=== PATIENT | male | born 1950 | race Asian ===

== ENCOUNTER 2016-11-21 06:20 | Inpatient (IN) | payer OTHER, MEDICAID ==
[~2016-11-21] VITALS: Ht 162.6 cm; Wt 63.5 kg
[2016-11-21 06:20] VITALS: BP 122/84; PULSE 62; RESP 20; TEMP 97.9; O2SAT 97
--- NOTE | 2016-11-21 06:20 | NUR ---
Patient to ER bed 6 to gown for evaluation. Side rails up.
--- NOTE | 2016-11-21 06:30 | NUR ---
Pt in bed 6 , s/p near syncopal episode upon standing prior to breakfast , accu check on arrival was 74. Dr Calvo aware.
--- NOTE | 2016-11-21 06:35 | NUR ---
ANGELIQUE Quinones at bedside examining patient.
--- NOTE | 2016-11-21 07:05 | NUR ---
Assumed care. Pt has no acute distress noted. Pt adjusted for pt comfort.
[2016-11-21 07:12] LABS: HEMATOCRIT 37.6 % (36-54); HEMOGLOBIN 12.7 g/dL (14.0-18.0); MEAN CORPUSCULAR HEMOGLOBIN 32 pg (27-31); MEAN CORPUSCULAR HGB CONC 34 % (32-36); MEAN CORPUSCULAR VOLUME 96 fL (79.0-98.0); PLATELET COUNT (AUTO) 166 K/uL (130-430); RED BLOOD CELL COUNT(AUTO) 3.92 MIL/uL (4.2-6.2); RED CELL DISTRIBUTION WIDTH 13.1 % (9.0-15.0)
[2016-11-21 07:17] LABS: WHITE BLOOD COUNT (AUTO) 3.1 K/uL (4.8-10.8)
[2016-11-21 07:19] LABS: ANION GAP 5 (5-15); CALCIUM 8.9 mg/dL (8.4-11.0); CHLORIDE 105 mmol/L (98-107); CREATININE 1.11 mg/dL (0.55-1.30); GLUCOSE 97 mg/dL (70-99); POTASSIUM 4.3 mmol/L (3.5-5.1); SODIUM SERUM 141 mmol/L (136-145); UREA NITROGEN, BLOOD 11 mg/dL (8-21)
--- NOTE | 2016-11-21 07:30 | NUR ---
Caregiver at bedside to help feed pt.
[2016-11-21 07:32] LABS: GFR AFRICAN AMERICAN 86 mL/min (>90)
[2016-11-21 07:33] LABS: ALANINE AMINOTRANSFERASE 14 U/L (12-78); ALBUMIN 3.3 g/dL (3.4-4.8); ASPARTATE AMINOTRANSFERASE 22 U/L (10-37); THYROID STIMULATING HORMONE 3.59 uIu/mL (0.36-3.74); TOTAL BILIRUBIN 0.7 mg/dL (0.0-1.0)
--- NOTE | 2016-11-21 08:00 | NUR ---
Pt tolerated meal well approximately 90% consumed.
[2016-11-21 08:01] LABS: ATYPICAL LYMPHOCYTES % 0 % (0-0); BAND % (MANUAL) 2 % (0-6); LYMPHOCYTES % (MANUAL) 33 % (20-46)
[2016-11-21 08:02] LABS: BASOPHILS % (MANUAL) 1 % (0-2); EOSINOPHILS % (MANUAL) 0 % (0-7); MONOCYTES % (MANUAL) 8 % (0-11)
[2016-11-21] MEDS ORDERED: LIP10 PO (08:05)
[2016-11-21] MEDS ORDERED: ASCO500T20 PO (08:05)
[2016-11-21] MEDS ORDERED: VITA400C19 PO (08:05)
[2016-11-21] MEDS ORDERED: LORA10TA7 PO (08:05)
[2016-11-21] MEDS ORDERED: OLAN5TAB26 PO (08:05)
[2016-11-21] MEDS ORDERED: LEVO75TA7 PO (08:05)
[2016-11-21] MEDS ORDERED: MULT PO (08:05)
--- NOTE | 2016-11-21 08:10 | NUR ---
# 20 gauge angiocath placed to RAC. Use of asceptic technique. Opsite placed over site. Blood return noted. Flushed with 10 cc of normal saline. No evidence of infiltration noted. Patient tolerated well.
--- NOTE | 2016-11-21 08:15 | NUR ---
Correction:Medication reconciliation completed with information provided by Caregiver. Any prior medication reconciliation on file was reviewed and corrected.
--- NOTE | 2016-11-21 08:15 | NUR ---
Medication reconciliation completed with information provided by . Any prior medication reconciliation on file was reviewed and corrected.
--- NOTE | 2016-11-21 08:30 | NUR ---
Patient will be admitted to care of . Admitted to Telemetry unit. Will go to room 105A. Belongings list completed. Summary report printed. Report will be given at bedside.
--- NOTE | 2016-11-21 08:31 | NUR ---
ADMIT NOTE Received pt from ER to the floor with a diagnosis of Syncope. Admission process initiated. patient oriented to pain management, safety and call light-teach back done.
--- NOTE | 2016-11-21 08:45 | NUR ---
ROUNDS PATIENT BEING SEEN BY DR. BAHENA, DR. FAUST IS ALSO HERE TO SEE PATIENT, PATIENT IN STABLE CONDITION, WILL CONTINUE TO MONITOR, FALL PRECAUTIONS IN PLACE.
--- NOTE | 2016-11-21 09:43 | NUR ---
RN ROUNDS PATIENT CURRENTLY GETTING 2D ECHO, WILL CONTINUE TO MONITOR, FALL PRECAUTIONS IN PLACE.
[2016-11-21] MEDS: LORATADINE 10 MG TABLET PO SCH (10:42)
[2016-11-21] MEDS: LEVOTHYROXINE SODIUM 0.075 MG TABLET PO SCH (10:42)
[2016-11-21] MEDS: ASCORBIC ACID 500 MG TABLET PO SCH (10:42)
[2016-11-21] MEDS: ATORVASTATIN 10 MG TABLET PO SCH (10:42)
--- NOTE | 2016-11-21 10:45 | NUR ---
MEDICATIONS PATIENT RECEIVED MORNING MEDICATIONS, PATIENT TOLERATED WELL, NO OTHER NEEDS AT THIS TIME, WILL CONTINUE TO MONITOR, FALL PRECAUTIONS IN PLACE.
--- NOTE | 2016-11-21 11:45 | NUR ---
RN ROUNDS PATIENT IS CURRENTLY SITTING UP IN BED COLORING, NO SIGNS OF DISTRESS NOTED, WILL CONTINUE TO MONITOR, FALL PRECAUTIONS IN PLACE.
[2016-11-21 12:05] VITALS: BP 119/67; PULSE 57; RESP 15; TEMP 96.6; O2SAT 100
--- NOTE | 2016-11-21 14:22 | NUR ---
RN ROUNDS PATIENT RESTING IN BED, NO SIGNS OF DISTRESS NOTED, PATIENT IN STABLE CONDITION, WILL CONTINUE TO MONITOR, FALL AND ISOLATION PRECAUTIONS IN PLACE.
[2016-11-21 15:27] VITALS: BP 119/67; PULSE 57; RESP 15; TEMP 96.6; O2SAT 100
[2016-11-21 16:02] VITALS: BP 92/56; PULSE 71; RESP 16; TEMP 98.1; O2SAT 97
--- NOTE | 2016-11-21 16:02 | NUR ---
CAREGIVER/BAR WAITER/WAITRESS/ FAMILY MEMBER SPOKE TO PATIENT'S CAREGIVER ALLISON WHO GAVE INFORMATION FOR ADMISSION DATE, STATED PATIENT IS CONSERVED AND GAVE ME NUMBER TO PATIENT'S CONSERVATOR JUDY DIALLO [phone] CALLED AND SPOKE WITH JUDY DIALLO WHO STATES SHE IS NOT PATIENT'S CONSERVATOR, SHE IS HIS BAR WAITER/WAITRESS THROUGH [facility], STATED PATIENT IS NOT CONSERVED HE JUST HAS A BAR WAITER/WAITRESS AND STATED THAT FAMILY IS INVOLVED AND IF A CONSENT IS NEEDED WE COULD GO THROUGH TH SISTER WHOSE NAME IS BESS MORALEZ [phone]
--- NOTE | 2016-11-21 16:30 | NUR ---
RN ROUNDS CAREGIVER AT BEDSIDE, PATIENT IN STABLE CONDITION, UPDATE CAREGIVER ON PATIENT'S STATUS, CAREGIVER STATED SHE WILL BE BACK TOMORROW TO SEE PATIENT, NO OTHER NEEDS AT THIS TIME, WILL CONTINUE TO MONITOR, FALL PRECAUTIONS IN PLACE.
--- NOTE | 2016-11-21 18:42 | NUR ---
CLOSING NOTE PATIENT RESTING IN BED, NO SIGNS OF DISTRESS NOTED, BREATHING IS EVEN AND UNLABORED, ALL NEEDS MET, WILL ENDORSE PATIENT TO NETWORK OPERATIONS TECHNICIAN NURSE, BED IN LOWEST POSITION, SIDE RAILS UP, BED ALARM ON, FALL PRECAUTIONS IN PLACE.
[2016-11-21 20:00] VITALS: BP 115/72; PULSE 66; RESP 18; TEMP 97.3; O2SAT 96
--- NOTE | 2016-11-21 20:00 | NUR ---
Rounds Received patient lying in bed resting, denies of any pain, no acute distress noted. IV site checked intact and patent on saline lock. Instructed patient to call nurse when getting out of bed, call light within reach, bed alarm on.
[2016-11-21] MEDS: OLANZapine 5 MG TABLET PO SCH (20:52)
--- NOTE | 2016-11-21 22:06 | NUR ---
Rounds Patient resting and watching tv, call light within reach.
[2016-11-22] VITALS (7 sets, daily range): BP systolic 91–119; BP diastolic 50–64; PULSE 62–81; RESP 16–20; TEMP 97.6–98.7; O2SAT 93–98
--- NOTE | 2016-11-22 00:43 | NUR ---
PATIENT RESTING: Patient resting quietly. No acute distress noted. Call light within reach.
--- NOTE | 2016-11-22 02:44 | NUR ---
PATIENT RESTING: Patient resting quietly. No acute distress noted. Call light within reach.
--- NOTE | 2016-11-22 04:15 | NUR ---
PATIENT RESTING: Patient resting quietly. No acute distress noted. Call light within reach.
[2016-11-22 05:57] LABS: BILIRUBIN,URINE NEGATIVE (NEGATIVE); BLOOD, URINE NEGATIVE (NEGATIVE); CLARITY/URINE CLEAR (CLEAR); COLOR,URINE YELLOW (YELLOW); GLUCOSE,URINE NEGATIVE (NEGATIVE); KETONES,URINE NEGATIVE (NEGATIVE); LEUKOCYTE ESTERASE ,URINE NEGATIVE (NEGATIVE); NITRITE, URINE POSITIVE (NEGATIVE); PH,URINE 6.5 (5.0-8.0); PROTEIN URINE NEGATIVE (NEGATIVE); UROBILINOGEN,URINE 0.2 (0.2-1.0)
[2016-11-22 06:02] LABS: BACTERIA,URINE MODERATE /HPF (None Seen); MUCUS,URINE 1+ /LPF (None Seen); RBC,URINE 0-3 /HPF (0-3); WBC,URINE 0-3 /HPF (0-3)
--- NOTE | 2016-11-22 06:46 | NUR ---
Closing notes Patient slept most of the night, no other changes noted on patient current condition, resting at this time. Assisted patient to the bathroom x1 with standby assist.
--- NOTE | 2016-11-22 07:14 | NUR ---
PAGED PAGED SHERRIE MCINTYRE AT [phone] SPOKE WITH OBED.
--- NOTE | 2016-11-22 07:20 | NUR ---
INITIAL NOTE RECEIVED PATIENT RESTING IN BED, PATIENT CURRENTLY HAS IV IN RIGHT FOREARM SALINE LOCK, FLUSHING WELL, PATIENT'S BLOOD PRESSURE IS RUNNING ON LOW SIDE, WILL INFORM MD, CALL VILLEGAS LEFT NEXT TO PATIENT'S HAND, BED IN LOWEST POSITION, SIDE RAILS UP, BED ALARM ON, FALL PRECAUTIONS IN PLACE, WILL CONTINUE TO MONITOR.
--- NOTE | 2016-11-22 07:23 | NUR ---
DR. BAHENA NOTIFIED DR. BAHENA THAT PATIENT'S BLOOD PRESSURE IS LOW,LOWEST 87/56 HR 75,HIGHEST 95/60 HR 78, NO NEW ORDERS GIVEN, WILL CONTINUE TO MONITOR PATIENT.
--- NOTE | 2016-11-22 07:45 | NUR ---
Nutrition Update Arnoldo Scale 16 noted. Pt admitted for syncope. Diet: 2 gm Na BMI: 24 kg/m2 RD to follow per nutrition care standards.
[2016-11-22 07:47] LABS: BASOPHILS # (AUTO) 0.1 K/uL (0.0-0.2); BASOPHILS % (AUTO) 0.8 % (0.0-2.0); HEMATOCRIT 38.3 % (36-54); HEMOGLOBIN 12.7 g/dL (14.0-18.0); LYMPHOCYTES # (AUTO) 0.8 K/uL (1.0-5.5); LYMPHOCYTES % (AUTO) 10.1 % (20.5-51.5); MEAN CORPUSCULAR HEMOGLOBIN 32 pg (27-31); MEAN CORPUSCULAR HGB CONC 33 % (32-36); MEAN CORPUSCULAR VOLUME 96 fL (79.0-98.0); MONOCYTES # (AUTO) 0.3 K/uL (0.0-1.0); MONOCYTES % (AUTO) 3.6 % (1.7-9.3); NEUTROPHILS # (AUTO) 6.5 K/uL (1.8-7.7); NEUTROPHILS % (AUTO) 85.5 % (40.0-70.0); PLATELET COUNT (AUTO) 175 K/uL (130-430); RED BLOOD CELL COUNT(AUTO) 3.98 MIL/uL (4.2-6.2); RED CELL DISTRIBUTION WIDTH 13.1 % (9.0-15.0)
[2016-11-22 08:13] LABS: WHITE BLOOD COUNT (AUTO) 7.7 K/uL (4.8-10.8)
[2016-11-22] MEDS: ASCORBIC ACID 500 MG TABLET PO SCH (08:32)
[2016-11-22] MEDS: LORATADINE 10 MG TABLET PO SCH (08:32)
[2016-11-22] MEDS: LEVOTHYROXINE SODIUM 0.075 MG TABLET PO SCH (08:32)
[2016-11-22] MEDS: ATORVASTATIN 10 MG TABLET PO SCH (08:33)
--- NOTE | 2016-11-22 08:34 | NUR ---
MEDICATIONS PATIENT CURRENTLY RECEIVED MORNING MEDICATIONS, PATIENT TOLERATED WELL, PATIENT IS EATING BREAKFAST WITH ASSIST OF CANDY DEPARTMENT MANAGER, NO OTHER NEEDS AT THIS TIME, WILL CONTINUE TO MONITOR, FALL PRECAUTIONS IN PLACE.
[2016-11-22 09:02] LABS: ALBUMIN 3.2 g/dL (3.4-4.8); CALCIUM 9.1 mg/dL (8.4-11.0); CREATININE 1.01 mg/dL (0.55-1.30); POTASSIUM 4.1 mmol/L (3.5-5.1); TOTAL BILIRUBIN 0.8 mg/dL (0.0-1.0)
--- NOTE | 2016-11-22 10:03 | NUR ---
RN ROUNDS PATIENT RESTING IN BED, ASKED PATIENT IF HE HAD TO USE RESTROOM PATIENT NODDED HEAD NO, PATIENT WATCHING TV AT THIS TIME, CALL VILLEGAS LEFT WITHIN REACH OF PATIENT, FALL PRECAUTIONS IN PLACE, WILL CONTINUE TO MONITOR,
--- NOTE | 2016-11-22 11:43 | NUR ---
RN ROUNDS PATIENT RESTING IN BED, NO SIGNS OF DISTRESS NOTED, NO OTHER NEEDS AT THIS TIME, WILL CONTINUE TO MONITOR. FALL PRECAUTIONS IN PLACE.
--- NOTE | 2016-11-22 13:27 | NUR ---
RN ROUNDS ASSISTED PATIENT TO RESTROOM, PATIENT IS BACK IN BED, PATIENT IN STABLE CONDITION, NO OTHER NEEDS AT THIS TIME, WILL CONTINUE TO MONITOR, FALL PRECAUTIONS IN PLACE.
--- NOTE | 2016-11-22 15:00 | NUR ---
DR. BAHENA NOTIFIED DR. BAHENA THAT PATIENT HAS UTI, STATED HE WILL PUT IN ORDER FOR ANTIBIOTIC
--- NOTE | 2016-11-22 15:15 | NUR ---
PHYSICAL THERAPY CO-SIGN The Physical Therapy Progress Notes documented by Engagement Quality Consultant have been reviewed. Reviewed/Co-Signed by: Mela Cervantes,PT Documentation Done by: Sapphire Hsu PTA I concur with the documentation of this MANAGER AUTO. Plan: continue PT as per plan of care. Addendum: 11/22/16 at 1526 by Mela Cervantes PT Amended: Links added.
--- NOTE | 2016-11-22 15:30 | NUR ---
RN ROUNDS PATIENT SITTING IN BED COLORING, NO SIGNS OF DISTRESS NOTED, PATIENT IN STABLE CONDITION, WILL CONTINUE TO MONITOR. FALL PRECAUTIONS IN PLACE.
--- NOTE | 2016-11-22 17:00 | NUR ---
DR. BAHENA PAGED DR. BAHENA TO REMIND HIM ABOUT PATIENT HAVING UTI, AWAITING CALL BACK
--- NOTE | 2016-11-22 17:29 | NUR ---
RN ROUNDS PATIENT RESTING IN BED WITH EYES CLOSED, NO SIGNS OF DISTRESS NOTED, CALL VILLEGAS WITHIN REACH, FALL PRECAUTIONS IN PLACE, WILL CONTINUE TO MONITOR.
--- NOTE | 2016-11-22 18:41 | NUR ---
CLOSING NOTE PATIENT IN STABLE CONDITION, ALL NEEDS MET, WILL ENDORSE PATIENT TO BROKE HANDLER NURSE, PATIENT CURRENTLY SITTING IN BED, NO SIGN OF DISTRESS NOTED, BED IN LOWEST POSITION, SIDE RAILS UP, BED ALARM ON, FALL PRECAUTIONS IN PLACE.
--- NOTE | 2016-11-22 20:00 | NUR ---
Initial Note Received awake, alert and oriented to name but speaks minimal. Nods/moves his head when asked a question answerable by yes or no. No SOB noted. Denies any pain or n/v at this time. Saline lock. Skin intact. No peripheral edema noted. Caregiver at the bedside but he's leaving soon. Needs attended. Bed alarm on at low position at all times. Kept warm and comfortable.
[2016-11-22] MEDS ORDERED: CIPROFLOXACIN HCL 500 MG TABLET PO ONE (20:15)
[2016-11-22] MEDS: OLANZapine 5 MG TABLET PO SCH (20:35)
--- NOTE | 2016-11-22 22:00 | NUR ---
RN Note Patient awake. Offered urinal and used urinal with odalys colored urine amount of 200 ml. Reposition himself and kept warm and comfortable.
--- NOTE | 2016-11-22 22:43 | NUR ---
RN Note Assisted patient to the bathroom and back to bed. Steady gait but weak. Patient needs assistance. Kept warm and comfortable.
[2016-11-23] MEDS ORDERED: FLU VACC QS 2017-18(36MOS+)/PF 0.5 ML/SYR SYRINGE I.M. PRN
--- NOTE | 2016-11-23 | NUR ---
RN Note Sleeping at this time No distress noted.
--- NOTE | 2016-11-23 02:00 | NUR ---
RN Note Asleep but arousable. No SOB noted. Kept warm.
[2016-11-23 03:39] VITALS: BP 108/64; PULSE 93; RESP 18; TEMP 98.3; O2SAT 92
--- NOTE | 2016-11-23 04:30 | NUR ---
RN Note Asleep but arousable. No SOB or facial grimacing noted. Flu vaccine given per protocol. No complaints. Repositioned. Kept clean, dry and comfortable.
--- NOTE | 2016-11-23 06:49 | NUR ---
End Note Afebrile, vital signs stable. No SOB noted. Denies pain, SOB or n/v throughout the night. Assisted to the bathroom and back to bed. Flu shot given. Mentally challenged but understands commands. Minimal speech only nods his head. Needs attended. Call light within reach. Bed alarm on at low position at all times. NSR monitor. Kept clean, dry and comfortable.
[2016-11-23 08:00] VITALS: BP 103/63; PULSE 64; RESP 18; TEMP 97.2; O2SAT 100
--- NOTE | 2016-11-23 08:54 | NUR ---
PHONE CALL FROM SISTER, BESS [phone]ING TO SPEAK WITH . [address] BAHENA INFORMED
--- NOTE | 2016-11-23 09:16 | NUR ---
DR BAHENA SPEAKING W PATIENT'S SISTER REGARDING DISCHARGE PLAN AND PLAN OF CARE.
[2016-11-23] MEDS: LORATADINE 10 MG TABLET PO SCH (09:25)
[2016-11-23] MEDS: ATORVASTATIN 10 MG TABLET PO SCH (09:25)
[2016-11-23] MEDS: LEVOTHYROXINE SODIUM 0.075 MG TABLET PO SCH (09:25)
[2016-11-23] MEDS: ASCORBIC ACID 500 MG TABLET PO SCH (09:25)
[2016-11-23] MEDS ORDERED: CIPROFLOXACIN HCL 500 MG TABLET PO SCH (10:00)
[2016-11-23 11:03] VITALS: BP 103/63; PULSE 64; RESP 20; TEMP 97.2; O2SAT 100
[2016-11-23] MEDS ORDERED: CIPR500S2 PO (11:28)
[2016-11-23] MEDS ORDERED: CIPR-211 (11:31)
[2016-11-23 12:00] VITALS: BP 130/53; PULSE 71; RESP 20; TEMP 97.2; O2SAT 95
--- NOTE | 2016-11-23 13:29 | NUR ---
CALLED PATIENT'S P[facility]ITENTI[facility]. STATE THEY WILL SEND A RIDE WITHIN AN HOUR
--- NOTE | 2016-11-23 15:01 | NUR ---
PATIENT IS DRESSED AND READY TO GO. AWAITING TRANSPORT TO EXPLAIN DC INSTRUCTIONS AND PRESCRIPTION INFORMATION
--- NOTE | 2016-11-23 15:05 | NUR ---
PHYSICAL THERAPY CO-SIGN The Physical Therapy Progress Notes documented by Automatic Machines Supervisor have been reviewed. Reviewed/Co-Signed by: Mela Cervantes, PT Documentation Done by: Gabino Crow PTA I concur with the documentation of this PARAGLIDING INSTRUCTOR. Plan: continue PT as per plan of care if he remains in this hospital. Addendum: 11/23/16 at 1507 by Mela Cervantes PT Amended: Links added.
--- NOTE | 2016-11-23 15:30 | NUR ---
IV DC'D AND PRESSURE DRESSING APPLIED. PRESCRIPTION AND INFORMATION GIVEN TO CAREGIVER. FORMS SIGNED, ALL BELONGINGS ACCOUNTED FOR AND SENT HOME WITH PATIENT. TAKEN TO PRIVATE VAN VIA WHEELCHAIR. ABLE TO STAND AND AMBULATE FROM BED TO CHAIR, CHAIR TO VAN.
--- NOTE | 2016-11-24 16:51 | NUR ---
Discharge Follow Up Phone Call CRYPTOGRAPHIC VULNERABILITY ANALYST phoned patient's caregiver at the [facility], . She stated that patient was doing well. His prescription was filled and he is taking his antibiotic as directed. He will follow up with his PCP. They have no questions or concerns.
== END 2016-11-23 15:35 | disposition home or self-care (01) | DRG 690 ==
LOC: SED 06:20 → STU 08:20
PROVIDERS: ADMIT Internal Medicine Hospice and Palliative Medicine; ATTEND Internal Medicine Hospice and Palliative Medicine
DX: N39.0 Urinary tract infection, site not specified (principal); F03.90 Unspecified dementia, unspecified severity, without behavioral disturbance, psychotic disturbance, mood disturbance, and anxiety; I25.10 Atherosclerotic heart disease of native coronary artery without angina pectoris; D72.819 Decreased white blood cell count, unspecified; F17.200 Nicotine dependence, unspecified, uncomplicated; Z87.01 Personal history of pneumonia (recurrent); Q90.9 Down syndrome, unspecified; Z79.899 Other long term (current) drug therapy; R55 Syncope and collapse
CPT/HCPCS: 36415; 71010; 80053; 80061; 81000-TC; 84443-TC; 84484; 85007; 85025; 85027; 87086; 93005; 93306; 97110-GP; 97116-GP; 97530-GP; 99285; Q2037

== ENCOUNTER 2017-05-23 08:28 | Inpatient (IN) | payer OTHER, MEDICAID ==
[~2017-05-23] VITALS: Ht 167.6 cm; Wt 63.5 kg
[2017-05-23] VITALS (7 sets, daily range): BP systolic 98–121
[~2017-05-23 08:28] MED LIST: ASCO500T20 PO; CIPR-211; LEVO75TA7 PO; LIP10 PO; LORA10TA7 PO; MULT PO; OLAN5TAB26 PO; VITA400C19 PO
[2017-05-23 08:57] LABS: BASOPHILS % (AUTO) 0.3 % (0.0-2.0); EOSINOPHILS % (AUTO) 0.1 % (0.0-4.0); HEMATOCRIT 37.9 % (36-54); HEMOGLOBIN 12.6 g/dL (14.0-18.0); LYMPHOCYTES # (AUTO) 0.6 K/uL (1.0-5.5); LYMPHOCYTES % (AUTO) 6.4 % (20.5-51.5); MEAN CORPUSCULAR HEMOGLOBIN 32 pg (27-31); MEAN CORPUSCULAR HGB CONC 33 % (32-36); MEAN CORPUSCULAR VOLUME 98 fL (79.0-98.0); MONOCYTES # (AUTO) 0.3 K/uL (0.0-1.0); MONOCYTES % (AUTO) 2.8 % (1.7-9.3); NEUTROPHILS # (AUTO) 8.5 K/uL (1.8-7.7); NEUTROPHILS % (AUTO) 90.4 % (40.0-70.0); PLATELET COUNT (AUTO) 152 K/uL (130-430); RED BLOOD CELL COUNT(AUTO) 3.88 MIL/uL (4.2-6.2); RED CELL DISTRIBUTION WIDTH 13.2 % (9.0-15.0); WHITE BLOOD COUNT (AUTO) 9.4 K/uL (4.8-10.8)
[2017-05-23 09:09] LABS: CREATININE 0.91 mg/dL (0.55-1.30); POTASSIUM 3.6 mmol/L (3.5-5.1)
[2017-05-23 09:13] LABS: PROTHROMBIN TIME 10.4 SECS (9.5-12.5)
[2017-05-23 09:14] LABS: ALBUMIN 3.2 g/dL (3.4-4.8); TOTAL BILIRUBIN 0.6 mg/dL (0.0-1.0)
[2017-05-23 09:34] LABS: BILIRUBIN,URINE NEGATIVE (NEGATIVE); BLOOD, URINE NEGATIVE (NEGATIVE); CLARITY/URINE CLEAR (CLEAR); COLOR,URINE YELLOW (YELLOW); GLUCOSE,URINE NEGATIVE (NEGATIVE); KETONES,URINE NEGATIVE (NEGATIVE); LEUKOCYTE ESTERASE ,URINE NEGATIVE (NEGATIVE); NITRITE, URINE NEGATIVE (NEGATIVE); PROTEIN URINE TRACE (NEGATIVE); UROBILINOGEN,URINE 0.2 (0.2-1.0)
[2017-05-23 09:38] LABS: BACTERIA,URINE RARE /HPF (None Seen); MUCUS,URINE None Seen /LPF (None Seen); RBC,URINE NONE SEEN /HPF (0-3); WBC,URINE 0-3 /HPF (0-3)
[2017-05-23] MEDS ORDERED: cefTRIAXone 1 GM IVPB PREMIX 50 ML IV ONE (10:00)
[2017-05-23] MEDS ORDERED: AZITHROMYCIN 500 MG in NS 250 ML IV ONE (13:15)
[2017-05-23] MEDS ORDERED: ACETAMINOPHEN 325 MG TABLET PO PRN (13:15)
[2017-05-23] MEDS ORDERED: FAMOTIDINE 20 MG TABLET PO ONE (16:00)
[2017-05-23] MEDS: IPRATROPIUM/ALBUTEROL SULFATE 3 ML AMPUL.NEB INH SCH (19:43)
[2017-05-23] MEDS: OLANZapine 5 MG TABLET PO SCH (21:35)
[2017-05-24] MEDS: IPRATROPIUM/ALBUTEROL SULFATE 3 ML AMPUL.NEB INH SCH ×4 (01:31→19:47)
[2017-05-24 02:42] VITALS: BP_SYST 100
[2017-05-24] MEDS: LEVOTHYROXINE SODIUM 0.075 MG TABLET PO SCH (06:22)
[2017-05-24 07:53] VITALS: BP_SYST 131
[2017-05-24] MEDS: cefTRIAXone 1 GM in D5W 50 ML IV SCH (08:10)
[2017-05-24] MEDS ORDERED: LORATADINE 10 MG TABLET PO PRN (09:00)
[2017-05-24] MEDS ORDERED: LORATADINE 10 MG TABLET PO SCH (09:00)
[2017-05-24] MEDS: FAMOTIDINE 20 MG TABLET PO SCH (09:20)
[2017-05-24] MEDS: ATORVASTATIN 10 MG TABLET PO SCH (09:20)
[2017-05-24] MEDS: AZITHROMYCIN 250 MG in NS 250 ML IV SCH (09:21)
[2017-05-24 12:58] VITALS: BP_SYST 100
[2017-05-24 16:07] VITALS: BP_SYST 107
[2017-05-24 20:00] VITALS: BP_SYST 93
[2017-05-24] MEDS: OLANZapine 5 MG TABLET PO SCH (22:31)
[2017-05-25] MEDS: IPRATROPIUM/ALBUTEROL SULFATE 3 ML AMPUL.NEB INH SCH ×4 (01:05→19:23)
[2017-05-25 03:43] VITALS: BP_SYST 130
[2017-05-25] MEDS: LEVOTHYROXINE SODIUM 0.075 MG TABLET PO SCH (06:02)
[2017-05-25 07:55] VITALS: BP_SYST 104
[2017-05-25] MEDS: cefTRIAXone 1 GM in D5W 50 ML IV SCH (08:35)
[2017-05-25] MEDS: AZITHROMYCIN 250 MG in NS 250 ML IV SCH (09:44)
[2017-05-25] MEDS: FAMOTIDINE 20 MG TABLET PO SCH (09:45)
[2017-05-25] MEDS: ATORVASTATIN 10 MG TABLET PO SCH (09:45)
[2017-05-25 12:00] VITALS: BP_SYST 99
[2017-05-25 16:43] VITALS: BP_SYST 112
[2017-05-25 18:30] VITALS: BP_SYST 112
[2017-05-25] MEDS ORDERED: ALBMDI INH (18:42)
[2017-05-25] MEDS ORDERED: AZIT500T2 PO (18:42)
== END 2017-05-25 20:08 | disposition home or self-care (01) | DRG 194 ==
LOC: SED 08:28 → STU 10:21 → SMU 05-25 13:42
PROVIDERS: ADMIT Internal Medicine; ATTEND Internal Medicine
DX: J18.1 Lobar pneumonia, unspecified organism (principal); E44.1 Mild protein-calorie malnutrition; E03.9 Hypothyroidism, unspecified; E78.5 Hyperlipidemia, unspecified; F89 Unspecified disorder of psychological development; Z79.899 Other long term (current) drug therapy; J20.9 Acute bronchitis, unspecified; Z68.22 Body mass index [BMI] 22.0-22.9, adult
CPT/HCPCS: 36415; 36600; 70450-TC; 71045; 80053; 81000-TC; 82803-TC; 83605; 84484; 85025; 85610-TC; 85730-TC; 87040-TC; 87081; 93005; 94640; 94760; 96365; 97116-GP; 99285; J0456; J0696; J7050; J7060

== ENCOUNTER 2017-09-21 08:14 | Inpatient (IN) | payer OTHER, MEDICAID ==
[~2017-09-21] VITALS: Ht 165.1 cm; Wt 59.4 kg
[2017-09-21 08:14] VITALS: BP_SYST 101
[~2017-09-21 08:14] MED LIST changes: +ALBMDI INH; +AZIT500T2 PO; -CIPR-211
[2017-09-21] MEDS ORDERED: NACL 0.9% 1,000 ML IV ONE (08:30)
[2017-09-21 09:02] LABS: BASOPHILS # (AUTO) 0.1 K/uL (0.0-0.2); BASOPHILS % (AUTO) 0.7 % (0.0-2.0); MONOCYTES # (AUTO) 0.3 K/uL (0.0-1.0); NEUTROPHILS # (AUTO) 6.3 K/uL (1.8-7.7); RED BLOOD CELL COUNT(AUTO) 3.79 MIL/uL (4.2-6.2); WHITE BLOOD COUNT (AUTO) 7.5 K/uL (4.8-10.8)
[2017-09-21 09:08] LABS: CREATININE 1.14 mg/dL (0.55-1.30); POTASSIUM 3.9 mmol/L (3.5-5.1)
[2017-09-21 09:13] LABS: TOTAL BILIRUBIN 0.5 mg/dL (0.0-1.0)
[2017-09-21 09:14] LABS: ALBUMIN 3.1 g/dL (3.4-4.8); EOSINOPHILS % (AUTO) 0.6 % (0.0-4.0); HEMOGLOBIN 12.3 g/dL (14.0-18.0); LYMPHOCYTES # (AUTO) 0.8 K/uL (1.0-5.5); LYMPHOCYTES % (AUTO) 10.3 % (20.5-51.5); MEAN CORPUSCULAR HEMOGLOBIN 33 pg (27-31); MEAN CORPUSCULAR HGB CONC 33 % (32-36); MEAN CORPUSCULAR VOLUME 98 fL (79.0-98.0); MONOCYTES % (AUTO) 4.5 % (1.7-9.3); NEUTROPHILS % (AUTO) 83.9 % (40.0-70.0); PLATELET COUNT (AUTO) 224 K/uL (130-430); RED CELL DISTRIBUTION WIDTH 13.4 % (9.0-15.0)
[2017-09-21 09:25] LABS: PROTHROMBIN TIME 10.6 SECS (9.5-12.5)
[2017-09-21] MEDS ORDERED: PHEL5 PO (09:56)
[2017-09-21 10:13] LABS: BILIRUBIN,URINE NEGATIVE (NEGATIVE); BLOOD, URINE NEGATIVE (NEGATIVE); CLARITY/URINE CLEAR (CLEAR); COLOR,URINE YELLOW (YELLOW); GLUCOSE,URINE NEGATIVE (NEGATIVE); KETONES,URINE NEGATIVE (NEGATIVE); LEUKOCYTE ESTERASE ,URINE NEGATIVE (NEGATIVE); NITRITE, URINE NEGATIVE (NEGATIVE); PH,URINE 6.5 (5.0-8.0); PROTEIN URINE NEGATIVE (NEGATIVE)
[2017-09-21 10:26] LABS: BARBITURATE, URINE NEGATIVE (NEG <=200); BENZODIAZEPINE, URINE NEGATIVE (NEG <=150); CANNABINOID, URINE NEGATIVE (NEG <=50); COCAINE, URINE NEGATIVE (NEG <=150); METHAMPHETAMINES SCREEN,URINE NEGATIVE (NEG <=500); OPIATE, URINE NEGATIVE (NEG <=100); PHENCYCLIDINE SCREEN,URINE NEGATIVE (NEG <=25); URINE AMPHETAMINE NEGATIVE (NEG <=500); URINE METHADONE NEGATIVE (NEG <=200); URINE OXYCODONE SCREEN NEGATIVE (NEG <=100); URINE PROPOXYPHENE SCREEN NEGATIVE (NEG <=300)
[2017-09-21 10:27] LABS: UR TRICYCLIC ANTIDEPRESSANTS NEGATIVE (NEG <=300)
[2017-09-21] MEDS ORDERED: IPRATROPIUM/ALBUTEROL SULFATE 3 ML AMPUL.NEB INH ONE (10:30)
[2017-09-21 12:06] VITALS: BP_SYST 107
[2017-09-21 12:35] VITALS: BP_SYST 114
[2017-09-21] MEDS ORDERED: PROMETHAZINE HCL 6.25 MG/5 ML UDC PO PRN (13:30)
[2017-09-21] MEDS ORDERED: LORATADINE 10 MG TABLET PO SCH (13:30)
[2017-09-21 16:25] VITALS: BP_SYST 101
[2017-09-21 19:22] VITALS: BP_SYST 99
[2017-09-21] MEDS: OLANZapine 5 MG TABLET PO SCH (20:20)
[2017-09-22] VITALS (7 sets, daily range): BP systolic 90–109
[2017-09-22] MEDS: ATORVASTATIN 10 MG TABLET PO SCH (08:36)
[2017-09-22] MEDS ORDERED: cefTRIAXone 1 GM in D5W 50 ML IV SCH (17:00)
[2017-09-22] MEDS: cefTRIAXone 1 GM in D5W 50 ML IV SCH (17:16)
[2017-09-22] MEDS: ALBUTEROL SULFATE 0.083% 2.5 MG/3 ML VIAL.NEB INH SCH (19:47)
[2017-09-22] MEDS: OLANZapine 5 MG TABLET PO SCH (20:55)
[2017-09-23] MEDS: ALBUTEROL SULFATE 0.083% 2.5 MG/3 ML VIAL.NEB INH SCH ×3 (01:15→13:36)
[2017-09-23 08:01] VITALS: BP_SYST 100
[2017-09-23] MEDS: ATORVASTATIN 10 MG TABLET PO SCH (08:40)
[2017-09-23 12:00] VITALS: BP_SYST 93
[2017-09-23 12:08] VITALS: BP_SYST 94
[2017-09-23] MEDS ORDERED: DOXY-168 PO (15:48)
[2017-09-23] MEDS: cefTRIAXone 1 GM in D5W 50 ML IV SCH (16:54)
[2017-09-23 16:58] VITALS: BP_SYST 90
[2017-09-23 17:22] VITALS: BP_SYST 90
== END 2017-09-23 18:02 | disposition home or self-care (01) | DRG 191 ==
LOC: SED 08:14 → SMU 10:30
PROVIDERS: ADMIT Internal Medicine; ATTEND Internal Medicine
DX: J44.0 Chronic obstructive pulmonary disease with (acute) lower respiratory infection (principal); E44.1 Mild protein-calorie malnutrition; J44.1 Chronic obstructive pulmonary disease with (acute) exacerbation; E78.5 Hyperlipidemia, unspecified; E03.9 Hypothyroidism, unspecified; F79 Unspecified intellectual disabilities; J20.9 Acute bronchitis, unspecified; Z79.899 Other long term (current) drug therapy; Q90.9 Down syndrome, unspecified
CPT/HCPCS: 36415; 70450-TC; 71045; 80053; 80307; 81003; 83605; 84484; 85025; 85610-TC; 85730-TC; 93005; 94640; 94760; 96360; 96361; 97110-GP; 97116-GP; 97530-GP; 99285; J0696; J7060; J7613; Q0169

== ENCOUNTER 2017-11-14 15:32 | Emergency (ER) | payer OTHER, MEDICAID ==
[~2017-11-14] VITALS: Ht 162.6 cm; Wt 68.0 kg
[2017-11-14 15:32] VITALS: BP_SYST 99
[~2017-11-14 15:32] MED LIST changes: -AZIT500T2 PO; +DOXY-168 PO; +PHEL5 PO; -VITA400C19 PO
[2017-11-14 17:15] LABS: BASOPHILS # (AUTO) 0.1 K/uL (0.0-0.2); BASOPHILS % (AUTO) 2.2 % (0.0-2.0); EOSINOPHILS % (AUTO) 1.2 % (0.0-4.0); HEMATOCRIT 36.1 % (36-54); LYMPHOCYTES % (AUTO) 25.4 % (20.5-51.5); MEAN CORPUSCULAR HEMOGLOBIN 32 pg (27-31); MEAN CORPUSCULAR HGB CONC 33 % (32-36); MEAN CORPUSCULAR VOLUME 97 fL (79.0-98.0); MONOCYTES # (AUTO) 0.3 K/uL (0.0-1.0); MONOCYTES % (AUTO) 7.2 % (1.7-9.3); NEUTROPHILS # (AUTO) 2.7 K/uL (1.8-7.7); PLATELET COUNT (AUTO) 265 K/uL (130-430); RED BLOOD CELL COUNT(AUTO) 3.74 MIL/uL (4.2-6.2); RED CELL DISTRIBUTION WIDTH 13.6 % (9.0-15.0); WHITE BLOOD COUNT (AUTO) 4.1 K/uL (4.8-10.8)
[2017-11-14 17:26] LABS: CALCIUM 8.9 mg/dL (8.4-11.0); CREATININE 0.88 mg/dL (0.55-1.30); POTASSIUM 4.2 mmol/L (3.5-5.1)
[2017-11-14 17:31] LABS: ALBUMIN 3.1 g/dL (3.4-4.8); TOTAL BILIRUBIN 0.3 mg/dL (0.0-1.0)
[2017-11-14] MEDS ORDERED: cefTRIAXone 1 GM VIAL IM ONE (18:15)
[2017-11-14 18:58] VITALS: BP_SYST 112
== END 2017-11-14 18:58 | disposition home or self-care (01) ==
LOC: SED 15:32
DX: I87.8 Other specified disorders of veins (principal); L03.116 Cellulitis of left lower limb; Z79.899 Other long term (current) drug therapy
CPT/HCPCS: 36415; 73660; 80053; 83605; 83880; 85025; 96372; 99285; J0696

== ENCOUNTER 2018-02-26 15:45 | Emergency (ER) | payer OTHER, MEDICAID ==
[~2018-02-26] VITALS: Ht 157.5 cm; Wt 58.1 kg
[2018-02-26 15:50] VITALS: BP_SYST 108
--- NOTE | 2018-02-26 15:50 | NUR ---
Patient triaged and placed in waiting room. VSS and patient appears in no acute distress at this time. Accompanied by STORAGE GARAGE MANAGER, awaiting available bed, and MD notified of need for MSE.
--- NOTE | 2018-02-26 18:39 | NUR ---
PT BEING EVALUATED BY LISSY LEMUS AT THIS TIME IN TRIAGE.
--- NOTE | 2018-02-26 18:40 | NUR ---
Pt BIB caregiver who noticed pt had bruising to head and R cheek today. Pt is resident of a facility and caregiver states there was no witnessed fall. Pt breathing even and unlabored. No other injuries/complaints noted. Will continue to monitor.
[2018-02-26 18:57] VITALS: BP_SYST 112
--- NOTE | 2018-02-26 18:57 | NUR ---
Patient given written and verbal discharge instructions and verbalizes understanding. ER MARBLE CEILING INSTALLER RONEY discussed with patient the results and treatment provided. Patient in stable condition. ID arm band removed. Rx of BACITRACIN given. Patient educated on pain management and to follow up with PMD. Pain Scale 0. Opportunity for questions provided and answered. Medication side effect fact sheet provided.
--- NOTE | 2018-02-26 19:00 | NUR ---
Note [email or web address] in ED - 02/26/18 at 2057 by [email or web address] Pt BIB caregiver who noticed pt had bruising to head and R cheek today. Pt is resident of a facility and caregiver states there was no witnessed fall. Pt breathing even and unlabored. No other injuries/complaints noted. Will continue to monitor.
== END 2018-02-26 18:57 | disposition home or self-care (01) ==
LOC: SED 15:45
DX: S00.83XA Contusion of other part of head, initial encounter (principal); S00.411A Abrasion of right ear, initial encounter; E78.5 Hyperlipidemia, unspecified; Z79.899 Other long term (current) drug therapy; X58.XXXA Exposure to other specified factors, initial encounter; Y93.89 Activity, other specified; Y92.89 Other specified places as the place of occurrence of the external cause; Y99.8 Other external cause status
CPT/HCPCS: 70450-TC; 70486-TC; 99284

== ENCOUNTER 2018-04-06 15:09 | Emergency (ER) | payer OTHER, MEDICAID ==
[~2018-04-06] VITALS: Ht 157.5 cm; Wt 70.3 kg
[2018-04-06 15:10] VITALS: BP_SYST 123
--- NOTE | 2018-04-06 15:13 | NUR ---
BROUGHT BACK TO BED #8 AND TRIAGED. REPORT GIVEN TO JOHNATHAN
--- NOTE | 2018-04-06 15:20 | NUR ---
Patient with history of Down Syndrome was brought in by his log roller for an evaluation of of a left chin bruise for 1 week and constant left hand swelling for 2 days with no alleviating or exacerbating factors. Per log roller, the mechanism of injury is unknown. Otherwise, no pain, recent injury, fall, head trauma, loss of consciousness, focal numbness of tingling, headache, dizziness, or any other complaints.
--- NOTE | 2018-04-06 15:25 | NUR ---
ER at bedside examining patient.
--- NOTE | 2018-04-06 17:30 | NUR ---
velcro wrist thumb spica splint applied to left arm. +2 pulse noted. Capillary refill <3 seconds. Patient has ability to move non-splinted digits. Has sensation present to affected site. Skin color within normal limits. Applied for pain management control.
[2018-04-06 18:12] VITALS: BP_SYST 117
--- NOTE | 2018-04-06 18:12 | NUR ---
Patient given written and verbal discharge instructions and verbalizes understanding. ER MD discussed with patient the results and treatment provided. Patient in stable condition. ID arm band removed. Rx of MOTRIN given. Patient educated on pain management and to follow up with PMD. Pain Scale 0/10. Opportunity for questions provided and answered. Medication side effect fact sheet provided.
== END 2018-04-06 18:12 | disposition home or self-care (01) ==
LOC: SED 15:09
DX: S62.92XA Unspecified fracture of left hand, initial encounter for closed fracture (principal); S00.83XA Contusion of other part of head, initial encounter; E78.5 Hyperlipidemia, unspecified; Z79.899 Other long term (current) drug therapy; X58.XXXA Exposure to other specified factors, initial encounter; Y93.89 Activity, other specified; Y92.89 Other specified places as the place of occurrence of the external cause; Y99.8 Other external cause status
CPT/HCPCS: 70110-TC; 99283

== ENCOUNTER 2018-07-20 17:56 | Inpatient (IN) | payer OTHER, MEDICAID ==
[~2018-07-20] VITALS: Ht 165.1 cm; Wt 55.4 kg
[2018-07-20 18:07] VITALS: BP_SYST 135
[2018-07-20] MEDS ORDERED: KETOROLAC TROMETHAMINE 30 MG VIAL IM ONE (20:00)
[2018-07-20] MEDS ORDERED: NACL 0.9% 1,000 ML IV ONE (20:45)
[2018-07-20 21:11] LABS: BASOPHILS # (AUTO) 0.1 K/uL (0.0-0.2); BASOPHILS % (AUTO) 0.4 % (0.0-2.0); HEMATOCRIT 39.7 % (36-54); HEMOGLOBIN 13.1 g/dL (14.0-18.0); LYMPHOCYTES # (AUTO) 0.2 K/uL (1.0-5.5); LYMPHOCYTES % (AUTO) 1.5 % (20.5-51.5); MEAN CORPUSCULAR HEMOGLOBIN 32 pg (27-31); MEAN CORPUSCULAR HGB CONC 33 % (32-36); MEAN CORPUSCULAR VOLUME 98 fL (79.0-98.0); MONOCYTES # (AUTO) 0.3 K/uL (0.0-1.0); MONOCYTES % (AUTO) 2.5 % (1.7-9.3); NEUTROPHILS # (AUTO) 11.3 K/uL (1.8-7.7); NEUTROPHILS % (AUTO) 95.6 % (40.0-70.0); PLATELET COUNT (AUTO) 170 K/uL (130-430); RED BLOOD CELL COUNT(AUTO) 4.07 MIL/uL (4.2-6.2); RED CELL DISTRIBUTION WIDTH 14.6 % (9.0-15.0); WHITE BLOOD COUNT (AUTO) 11.9 K/uL (4.8-10.8)
[2018-07-20] MEDS ORDERED: KETOROLAC TROMETHAMINE 30 MG VIAL IVP ONE (21:15)
[2018-07-20] MEDS ORDERED: MORPHINE 2 MG/ML INJ. SYRINGE IVP PRN ×2 (21:15→21:45)
[2018-07-20 21:29] LABS: CALCIUM 9.3 mg/dL (8.4-11.0); CREATININE 1.07 mg/dL (0.55-1.30)
[2018-07-20 21:32] LABS: INR 1.1 (0.80-1.20); PROTHROMBIN TIME 11.1 SECS (9.5-12.5)
[2018-07-20] MEDS ORDERED: VITA400C19 PO (21:32)
[2018-07-20 21:34] LABS: ALBUMIN 3.3 g/dL (3.4-4.8); TOTAL BILIRUBIN 0.8 mg/dL (0.0-1.0)
[2018-07-20] MEDS ORDERED: FLUC100T41 PO (21:36)
[2018-07-20] MEDS ORDERED: DOCUSATE SODIUM 100 MG CAPSULE PO PRN (21:45)
[2018-07-20] MEDS ORDERED: POTASSIUM CHLORIDE 20 MEQ TAB.PRT.SR PO PRN (21:45)
[2018-07-20] MEDS ORDERED: MUPIROCIN 2% TOPICAL OINTMENT 22 GM NS PRN (21:45)
[2018-07-20] MEDS ORDERED: ZOLPIDEM TARTRATE 5 MG TABLET PO PRN (21:45)
[2018-07-20] MEDS ORDERED: ONDANSETRON HCL 4 MG/2 ML VIAL IVP PRN (21:45)
[2018-07-20] MEDS ORDERED: ACETAMINOPHEN 325 MG TABLET PO PRN (21:45)
[2018-07-20] MEDS ORDERED: MAGNESIUM SULFATE 50 ML IV PRN (21:45)
[2018-07-20] MEDS ORDERED: LORazepam 2 MG/ML VIAL IVP PRN (21:45)
[2018-07-20 22:05] VITALS: BP_SYST 108
[2018-07-20 22:14] VITALS: BP_SYST 135
[2018-07-20] MEDS ORDERED: ALBUTEROL SULFATE 0.083% 2.5 MG/3 ML VIAL.NEB INH PRN (22:15)
[2018-07-20] MEDS: NACL 0.9% 1,000 ML IV SCH (22:39)
[2018-07-20] MEDS: MORPHINE 2 MG/ML INJ. SYRINGE IVP PRN (22:58)
[2018-07-21 00:38] VITALS: BP_SYST 109
[2018-07-21 05:39] LABS: BILIRUBIN,URINE NEGATIVE (NEGATIVE); BLOOD, URINE NEGATIVE (NEGATIVE); CLARITY/URINE CLEAR (CLEAR); COLOR,URINE ORANGE (YELLOW); GLUCOSE,URINE NEGATIVE (NEGATIVE); KETONES,URINE TRACE (NEGATIVE); LEUKOCYTE ESTERASE ,URINE NEGATIVE (NEGATIVE); NITRITE, URINE NEGATIVE (NEGATIVE); PH,URINE 6.5 (5.0-8.0); PROTEIN URINE TRACE (NEGATIVE)
[2018-07-21] MEDS: MORPHINE 2 MG/ML INJ. SYRINGE IVP PRN (05:43)
[2018-07-21 05:46] LABS: BACTERIA,URINE FEW /HPF (None Seen); HYALINE CASTS, URINE 0-10 /LPF (None Seen); RBC,URINE 0-3 /HPF (0-3); WBC,URINE 0-3 /HPF (0-3)
[2018-07-21] MEDS: LEVOTHYROXINE SODIUM 0.075 MG TABLET PO SCH (06:10)
[2018-07-21 06:59] LABS: BASOPHILS % (AUTO) 0.3 % (0.0-2.0); HEMATOCRIT 36.9 % (36-54); HEMOGLOBIN 12.1 g/dL (14.0-18.0); LYMPHOCYTES # (AUTO) 0.6 K/uL (1.0-5.5); LYMPHOCYTES % (AUTO) 4.9 % (20.5-51.5); MEAN CORPUSCULAR HEMOGLOBIN 32 pg (27-31); MEAN CORPUSCULAR HGB CONC 33 % (32-36); MEAN CORPUSCULAR VOLUME 98 fL (79.0-98.0); MONOCYTES # (AUTO) 0.4 K/uL (0.0-1.0); MONOCYTES % (AUTO) 3.4 % (1.7-9.3); NEUTROPHILS # (AUTO) 11.2 K/uL (1.8-7.7); NEUTROPHILS % (AUTO) 91.4 % (40.0-70.0); PLATELET COUNT (AUTO) 163 K/uL (130-430); RED BLOOD CELL COUNT(AUTO) 3.75 MIL/uL (4.2-6.2); RED CELL DISTRIBUTION WIDTH 14.5 % (9.0-15.0); WHITE BLOOD COUNT (AUTO) 12.3 K/uL (4.8-10.8)
[2018-07-21 07:04] LABS: CREATININE 1.08 mg/dL (0.55-1.30); POTASSIUM 4.2 mmol/L (3.5-5.1)
[2018-07-21 08:05] VITALS: BP_SYST 135
[2018-07-21] MEDS: HEPARIN SODIUM,PORCINE 5000 UNITS/ML VIAL SUBCUT SCH ×2 (09:37→20:48)
[2018-07-21] MEDS: NACL 0.9% 1,000 ML IV SCH (11:53)
[2018-07-21 12:26] VITALS: BP_SYST 103
[2018-07-21 14:16] LABS: BILIRUBIN,URINE NEGATIVE (NEGATIVE); BLOOD, URINE NEGATIVE (NEGATIVE); CLARITY/URINE CLEAR (CLEAR); COLOR,URINE YELLOW (YELLOW); GLUCOSE,URINE NEGATIVE (NEGATIVE); KETONES,URINE NEGATIVE (NEGATIVE); LEUKOCYTE ESTERASE ,URINE NEGATIVE (NEGATIVE); NITRITE, URINE NEGATIVE (NEGATIVE); PROTEIN URINE NEGATIVE (NEGATIVE); UROBILINOGEN,URINE 0.2 (0.2-1.0)
[2018-07-21 16:09] VITALS: BP_SYST 90
[2018-07-21 20:00] VITALS: BP_SYST 102
[2018-07-21] MEDS: OLANZapine 5 MG TABLET PO SCH (20:48)
[2018-07-21 23:46] VITALS: BP_SYST 148
[2018-07-22] MEDS: MORPHINE 2 MG/ML INJ. SYRINGE IVP PRN ×3 (00:02→18:28)
[2018-07-22] MEDS: NACL 0.9% 1,000 ML IV SCH ×3 (01:47→18:35)
[2018-07-22] MEDS: LEVOTHYROXINE SODIUM 0.075 MG TABLET PO SCH (06:05)
[2018-07-22 06:15] LABS: BASOPHILS # (AUTO) 0.1 K/uL (0.0-0.2); BASOPHILS % (AUTO) 0.9 % (0.0-2.0); EOSINOPHILS # (AUTO) 0.2 K/uL (0.0-0.4); EOSINOPHILS % (AUTO) 2.8 % (0.0-4.0); HEMATOCRIT 32.3 % (36-54); HEMOGLOBIN 10.7 g/dL (14.0-18.0); LYMPHOCYTES # (AUTO) 0.6 K/uL (1.0-5.5); LYMPHOCYTES % (AUTO) 11.4 % (20.5-51.5); MEAN CORPUSCULAR HEMOGLOBIN 33 pg (27-31); MEAN CORPUSCULAR HGB CONC 33 % (32-36); MEAN CORPUSCULAR VOLUME 99 fL (79.0-98.0); MONOCYTES # (AUTO) 0.2 K/uL (0.0-1.0); MONOCYTES % (AUTO) 4.4 % (1.7-9.3); NEUTROPHILS # (AUTO) 4.3 K/uL (1.8-7.7); NEUTROPHILS % (AUTO) 80.5 % (40.0-70.0); PLATELET COUNT (AUTO) 167 K/uL (130-430); RED BLOOD CELL COUNT(AUTO) 3.25 MIL/uL (4.2-6.2); RED CELL DISTRIBUTION WIDTH 14.6 % (9.0-15.0); WHITE BLOOD COUNT (AUTO) 5.4 K/uL (4.8-10.8)
[2018-07-22 06:35] LABS: CREATININE 0.97 mg/dL (0.55-1.30); POTASSIUM 4.1 mmol/L (3.5-5.1)
[2018-07-22] MEDS ORDERED: NA PHOS,M-B/NA PHOS,DI-BA 118 ML (FLEET ENEMA) RC ONE (07:45)
[2018-07-22 08:05] VITALS: BP_SYST 113
[2018-07-22] MEDS: HEPARIN SODIUM,PORCINE 5000 UNITS/ML VIAL SUBCUT SCH (08:51)
[2018-07-22 12:47] VITALS: BP_SYST 106
[2018-07-22] MEDS ORDERED: ONDANSETRON HCL 4 MG/2 ML VIAL IVP PRN (14:00)
[2018-07-22] MEDS ORDERED: DIPHENHYDRAMINE INJ 50 MG/ML VIAL IVP PRN (14:00)
[2018-07-22] MEDS ORDERED: fentaNYL CITRATE/PF 100 MCG/2 ML AMP IVP PRN ×2 (14:00)
[2018-07-22] MEDS ORDERED: NALOXONE HCL 0.4 MG/ML AMP (NARCAN) IVP PRN ×2 (14:00)
[2018-07-22] MEDS ORDERED: KETOROLAC TROMETHAMINE 60 MG/2 ML VIAL IM PRN (14:00)
[2018-07-22] MEDS ORDERED: MORPHINE SULFATE 10MG/10ML PF AMP SP SCH (14:00)
[2018-07-22] MEDS ORDERED: NALBUPHINE HCL 10 MG/ML AMP IVP PRN (14:00)
[2018-07-22] MEDS ORDERED: POLYMYXIN 500,000/BACIT.10,000 UNITS in NS IRR 1 L IR ONE (14:23)
[2018-07-22] MEDS ORDERED: BUPIVACAINE LIPOSOME/PF 266 MG/20 ML VIAL INFIL ONE (14:40)
[2018-07-22] MEDS ORDERED: ePHEDrine sulfate 50 MG/ML VIAL IVP ONE (15:45)
[2018-07-22] MEDS ORDERED: ePHEDrine sulfate 50 MG/ML VIAL ONE (15:58)
[2018-07-22] MEDS ORDERED: ePHEDrine sulfate 50 MG/ML VIAL IVP PRN (16:30)
[2018-07-22 16:56] VITALS: BP_SYST 101
[2018-07-22 20:20] VITALS: BP_SYST 102
[2018-07-22] MEDS: OLANZapine 5 MG TABLET PO SCH (20:50)
[2018-07-22] MEDS: CEFAZOLIN 1 GM IVPB PREMIX 50 ML IV SCH (21:12)
[2018-07-22 23:53] VITALS: BP_SYST 99
[2018-07-23] MEDS: CEFAZOLIN 1 GM IVPB PREMIX 50 ML IV SCH (05:53)
[2018-07-23] MEDS: LEVOTHYROXINE SODIUM 0.075 MG TABLET PO SCH (06:08)
[2018-07-23 06:29] LABS: BASOPHILS # (AUTO) 0.1 K/uL (0.0-0.2); BASOPHILS % (AUTO) 0.8 % (0.0-2.0); EOSINOPHILS # (AUTO) 0.1 K/uL (0.0-0.4); EOSINOPHILS % (AUTO) 1.3 % (0.0-4.0); HEMATOCRIT 24.7 % (36-54); HEMOGLOBIN 8.2 g/dL (14.0-18.0); LYMPHOCYTES # (AUTO) 0.8 K/uL (1.0-5.5); LYMPHOCYTES % (AUTO) 11.5 % (20.5-51.5); MEAN CORPUSCULAR HEMOGLOBIN 33 pg (27-31); MEAN CORPUSCULAR HGB CONC 33 % (32-36); MEAN CORPUSCULAR VOLUME 99 fL (79.0-98.0); MONOCYTES # (AUTO) 0.3 K/uL (0.0-1.0); MONOCYTES % (AUTO) 4.6 % (1.7-9.3); NEUTROPHILS # (AUTO) 5.4 K/uL (1.8-7.7); NEUTROPHILS % (AUTO) 81.8 % (40.0-70.0); PLATELET COUNT (AUTO) 142 K/uL (130-430); RED BLOOD CELL COUNT(AUTO) 2.51 MIL/uL (4.2-6.2); RED CELL DISTRIBUTION WIDTH 14.3 % (9.0-15.0); WHITE BLOOD COUNT (AUTO) 6.6 K/uL (4.8-10.8)
[2018-07-23 06:49] LABS: CREATININE 1.06 mg/dL (0.55-1.30); POTASSIUM 4.4 mmol/L (3.5-5.1)
[2018-07-23 07:35] VITALS: BP_SYST 108
[2018-07-23] MEDS: ENOXAPARIN SODIUM 40 MG/0.4 ML SYRINGE SUBCUT SCH (08:58)
[2018-07-23] MEDS ORDERED: FUROSEMIDE 20 MG/2 ML VIAL IVP ONE (09:45)
[2018-07-23] MEDS: NACL 0.9% 1,000 ML IV SCH (09:50)
[2018-07-23] MEDS ORDERED: AZITHROMYCIN 250 MG in NS 250 ML IV SCH (10:00)
[2018-07-23] MEDS: cefTRIAXone 1 GM in D5W 50 ML IV SCH (10:26)
[2018-07-23] MEDS ORDERED: IPRATROPIUM/ALBUTEROL SULFATE 3 ML AMPUL.NEB (DUONEB) INH ONE (11:00)
[2018-07-23 11:30] VITALS: BP_SYST 100
[2018-07-23] MEDS ORDERED: ENOXAPARIN SODIUM 40 MG/0.4 ML SYRINGE SUBCUT ONE (12:00)
[2018-07-23 12:42] VITALS: BP_SYST 104
[2018-07-23] MEDS ORDERED: BUPIVACAINE /PF 0.25% 30 ML VIAL INJ ONE (15:25)
[2018-07-23] MEDS ORDERED: BUPIVACAINE /PF 0.75% 10 ML VIAL INJ ONE (15:25)
[2018-07-23] MEDS ORDERED: MORPHINE SULFATE 10MG/10ML PF AMP ONE (15:25)
[2018-07-23] MEDS ORDERED: LIDOCAINE 1% 10 MG/ML, 20 ML MDV ONE (15:25)
[2018-07-23] MEDS ORDERED: MIDAZOLAM HCL 5 MG/ML VIAL (VERSED) IV ONE (15:25)
[2018-07-23] MEDS ORDERED: CEFAZOLIN 2 GM IVPB PREMIX 50 ML IV ONE (15:25)
[2018-07-23] MEDS ORDERED: LR 1,000 ML IV.SOLN IV ONE (15:25)
[2018-07-23] MEDS ORDERED: ePHEDrine sulfate 50 MG/ML VIAL ONE (15:25)
[2018-07-23] MEDS ORDERED: PROPOFOL 200MG/ 20ML VIAL (DIPRIVAN) IV ONE (15:25)
[2018-07-23] MEDS ORDERED: NS IRRIG SOLN 1000 ML IR ONE (15:25)
[2018-07-23 16:32] VITALS: BP_SYST 107
[2018-07-23] MEDS: IPRATROPIUM/ALBUTEROL SULFATE 3 ML AMPUL.NEB (DUONEB) INH SCH ×2 (17:10→21:30)
[2018-07-23 20:00] VITALS: BP_SYST 101
[2018-07-23] MEDS: OLANZapine 5 MG TABLET PO SCH (21:00)
[2018-07-24 02:15] VITALS: BP_SYST 102
[2018-07-24] MEDS: LEVOTHYROXINE SODIUM 0.075 MG TABLET PO SCH (06:11)
[2018-07-24] MEDS: NACL 0.9% 1,000 ML IV SCH (06:11)
[2018-07-24 08:01] VITALS: BP_SYST 101
[2018-07-24] MEDS ORDERED: ENOXAPARIN SODIUM 40 MG/0.4 ML SYRINGE SUBCUT SCH (09:00)
[2018-07-24] MEDS: IPRATROPIUM/ALBUTEROL SULFATE 3 ML AMPUL.NEB (DUONEB) INH SCH ×3 (09:09→16:53)
[2018-07-24] MEDS: cefTRIAXone 1 GM in D5W 50 ML IV SCH (09:15)
[2018-07-24] MEDS: ENOXAPARIN SODIUM 40 MG/0.4 ML SYRINGE SUBCUT SCH (09:16)
[2018-07-24 12:30] VITALS: BP_SYST 102
[2018-07-24] MEDS ORDERED: AZITHROMYCIN 250 MG TABLET PO ONE (13:00)
[2018-07-24 16:02] VITALS: BP_SYST 108
[2018-07-24 16:23] VITALS: BP_SYST 105
[2018-07-25] MEDS ORDERED: AZITHROMYCIN 250 MG TABLET PO SCH (09:00)
== END 2018-07-24 20:38 | DRG 853 ==
LOC: SED 17:56 → SMU 21:05
PROVIDERS: ADMIT General Practice; ATTEND General Practice
PROC: 0S9B0ZZ Drainage of Left Hip Joint, Open Approach (ICD-10-PCS; 2018-07-22)
PROC: 0SRS0JA Replacement of Left Hip Joint, Femoral Surface with Synthetic Substitute, Uncemented, Open Approach (ICD-10-PCS; principal; 2018-07-22 13:00)
DX: A41.9 Sepsis, unspecified organism (principal); S72.012A Unspecified intracapsular fracture of left femur, initial encounter for closed fracture; J18.9 Pneumonia, unspecified organism; E87.1 Hypo-osmolality and hyponatremia; M48.56XA Collapsed vertebra, not elsewhere classified, lumbar region, initial encounter for fracture; M25.00 Hemarthrosis, unspecified joint; E03.9 Hypothyroidism, unspecified; E78.5 Hyperlipidemia, unspecified; E83.51 Hypocalcemia; F79 Unspecified intellectual disabilities; K59.00 Constipation, unspecified; R62.50 Unspecified lack of expected normal physiological development in childhood; Z79.899 Other long term (current) drug therapy
CPT/HCPCS: 36415; 71045; 72131; 72170-TC; 72192-TC; 80048; 80053; 81000-TC; 81003; 82962; 83036; 83735-TC; 85025; 85610-TC; 85730-TC; 86886; 86900; 86901; 87040-TC; 87081; 88305; 88311; 93005; 94640; 94760; 96361; 96374; 99285; C1776; C9290; J0456; J0690; J0696; J1644; J1650; J1885; J1940; J2001; J2250; J2270; J2274; J2704; J3490; J7030; J7050; J7060; J7120; J7613; J7620; Q0144